=== PATIENT | female | born 1985 | race Caucasian/White ===

== ENCOUNTER 2019-07-16 20:56 | Emergency (ER) | payer SELFPAY ==
[2019-07-16 21:00] VITALS: BP 159/98; PULSE 91; RESP 20; TEMP 36.3; O2SAT 95; BMI 41.5
--- NOTE | 2019-07-16 21:09 | CTR_ITS ---
PROCEDURE INFORMATION: Exam: CT Abdomen And Pelvis Without Contrast Exam date and time: 07/16/2019 9:20 PM Age: 34 years old Clinical indication: Abdominal pain; Right; Prior surgery; Surgery date: 6+ months; Surgery type: Hyst; Patient HX: C/O R flank pain w HX of stones TECHNIQUE: Imaging protocol: Computed tomography of the abdomen and pelvis without contrast. Radiation optimization: All CT scans at this facility use at least one of these dose optimization techniques: automated exposure control; mA and/or kV adjustment per patient size (includes targeted exams where dose is matched to clinical indication); or iterative reconstruction. COMPARISON: US Pelvis Female [id number] 08/19/2015 9:51 AM RADIATION DOSE METRICS: Total DLP: 1854.06 mGy-cm FINDINGS: Limitations: The absence of intravenous contrast lessens the sensitivity of this study for solid organ abnormalities. Liver: There is no focal abnormality within the liver. Gallbladder and bile ducts: Multiple calcified gallstones are present. Pancreas: The pancreas is normal. Spleen: The spleen is normal. Adrenals: The adrenal glands are normal. Kidneys and ureters: There is no evidence of hydronephrosis. There is no evidence of renal or ureteral calcifications. Mild stranding around the right ureter could represent sign of recently passed stone. Correlation with clinical history is suggested. The kidneys are normal. Stomach and bowel: There is no evidence of colitis/diverticulitis. Appendix: A normal appendix is identified. Intraperitoneal space: There is no evidence of free intraperitoneal fluid. Vasculature: There is a small calcified phlebolith in the right gonadal vein. Lymph nodes: Unremarkable. No enlarged lymph nodes. Bladder: Unremarkable as visualized. Reproductive: There has been a hysterectomy. Bones/joints: Unremarkable. No acute fracture. Soft tissues: Unremarkable. Other findings: . CT/CT kidney stone [id number] IMPRESSION: 1. Cholelithiasis 2. No acute findings Radiation Dose CTDIVOL = (mGy): DLP = 1854.06 (mGy-cm)
--- NOTE | 2019-07-16 21:15 | ED_ITS ---
HPI - Abdominal Pain General: Chief Complaint: Abdominal Pain Stated Complaint: possible uti/abd pain Time Seen by Provider: 07/16/19 21:07 Source: patient Mode of arrival: ambulatory Limitations: no limitations History of Present Illness: HPI narrative: 34-year-old female who states she has had bilateral flank pain along with dysuria. She states she has had pain especially at the end of her urination has had been urinating more as well. Patient denies any fever. Patient denies any chest pain. She states that she has had bilateral flank pain she rates a 5 out of 10. MD elicited complaint: abdominal pain and flank pain Onset (ago): day(s) Associated Symptoms: Reports dysuria; Denies chills, diarrhea, fever(s), nausea and vomiting Review of Systems Const: Denies: fever(s), chills, body aches or change in appetite Eyes: Denies: blurry vision or eye discomfort ENMT: Denies: throat pain or dental pain Card: Denies: chest pain Resp: Denies: dyspnea GI: Denies: abdominal pain, nausea, vomiting or diarrhea : Reports: flank pain and dysuria Musc: Denies: neck pain or back pain Skin/Breast: Denies: rash Neuro: Denies: headache(s) Psych: Denies: depression Glynn/Lymph: Denies: easy bruising All/Imm: Denies: urticaria PFSH ED PFSH: Social History Smoking and tobacco status: never smoked Physical Exam Const: COMMON NORMALS: no acute distress, patient oriented x3 and healthy appearing HENMT: COMMON NORMALS: normocephalic and atraumatic HEAD & SCALP: normocephalic and atraumatic Eye: COMMON NORMALS: Equal, round and reactive pupils present and EOMs intact bilaterally PUPIL: Yes Equal, round and reactive pupils present Neck/C-Spine: COMMON NORMALS: full ROM and supple Chest: COMMONS NORMALS: normal inspection of the chest and normal palpation of entire chest wall Resp: COMMON NORMALS: normal respiratory effort, No retractions, No use of accessory muscles and clear to auscultation bilaterally AUSCULTATION: clear to auscultation bilaterally Cardio: COMMON NORMALS: regular rate, regular rhythm and No murmurs present (Cardio) RATE: regular rate RHYTHM: regular rhythm GI: COMMON NORMALS: Normal to inspection, nondistended, normoactive bowel sounds present, Soft to palpation, non-tender and no masses PALPATION: Yes Soft to palpation Extremity: COMMON NORMALS: normal to inspection and full ROM Neuro: COMMON NORMALS: patient oriented x3, moves all extremities and no focal motor deficits Psych: COMMON NORMALS: mental status grossly normal, Normal thought process present and cooperative THOUGHT PROCESS: Normal thought process present Skin: COMMON NORMALS: no rashes or lesions noted and no wounds GENERAL SKIN EXAM: no rashes or lesions noted Course Vital Signs: Vital signs: Vital Signs Temperature 97.3 F L 07/16/19 21:00 Pulse Rate 91 07/16/19 21:00 Respiratory Rate 16 07/16/19 21:47 Blood Pressure 159/98 07/16/19 21:00 Pulse Oximetry 95 07/16/19 21:00 MDM - Abdominal Pain MDM Narrative: Medical decision making narrative: Emmie presents here with flank pain along with dysuria and was found to have an acute cystitis. Patient has no signs of kidney stone and CT scan of her abdomen was otherwise normal. Patient is afebrile and lab work is normal. Her pain is improved here. We will start her on antibiotics and prescribe her pain meds for home. She is to follow-up with her primary care doctor in 3 to 5 days and return if worsening. Lab Data: Labs: Lab Results 07/16/19 07/16/19 07/16/19 Range/Units 21:13 21:37 21:37 WBC 10.7 H (4.0-10.0) 10^3/ uL RBC 5.31 H (4.1-5.3) 10^6/u L Hgb 14.5 (11.5-15.3) g/dL Hct 45.0 (37.0-47.0) % MCV 84.7 (81-99) fL MCH 27.3 L (28.0-34.0) pg MCHC 32.2 (30.0-36.0) g/dL RDW 12.6 (12.1-15.1) % Plt Count 283 (130-400) 10^3/c mm MPV 8.9 (7.4-10.4) fL Neut % (Auto) 67.5 % Lymph % (Auto) 21.5 % [place] % (Auto) 9.1 % Eos % (Auto) 0.9 % Baso % (Auto) 0.3 % Neut # (Auto) 7.2 (1.8-7.7) 10^3/u L Lymph # (Auto) 2.3 (0.8-4.8) 10^3/u L [place] # (Auto) 1.0 H (0.2-0.9) 10^3/u L Eos # (Auto) 0.1 (0.0-0.8) 10^3/u L Baso # (Auto) 0.0 (0.0-0.1) 10^3/u L Nucleated RBC % (a uto) 0 % Nucleated RBCs # 0.0 /100WBC Sodium 142 (136-145) mmol/L Potassium 4.3 (3.5-5.1) mmol/L Chloride 101 (98-107) mmol/L Carbon Dioxide 29 (22-29) mmol/L Anion Gap 16.3 (5-19) BUN 13 (6-20) mg/dL Creatinine 1.0 H (0.5-0.9) mg/dL GFR Calculation 63.5 L (90-130) mL/min Glucose 120 H (65-115) mg/dL Calculated Osmolal ity 291 (285-295) mOsm/k g Calcium 10.2 (8.5-10.5) mg/dL Total Bilirubin 0.3 (0.15-1.2) mg/dL AST 17 (0-32) U/L ALT 21 (0-33) U/L Alkaline Phosphata se 104 (35-105) IU/L Total Protein 7.5 (6.6-8.7) g/dL Albumin 4.4 (3.5-5.2) g/dL Globulin 3.1 (1.3-4.6) g/dL Lipase 75 H (13-60) U/L Urine Color Straw (Yellow) Urine Appearance Hazy A (CLEAR) Urine pH 8 H (5-7) Ur Specific Gravit y 1.005 (1.005-1.030) Urine Protein Neg (Negative) Urine Glucose (UA) Norm (Normal) Urine Ketones Negative (Negative) Urine Blood 3+ H (Negative) Urine Nitrate Negative (Negative) Urine Bilirubin Neg (NEGATIVE) Prot Sulfosalicyli c Acd Positive (Negative) Urine Urobilinogen Norm (Negative) mg/dL Ur Leukocyte Selina ase 2+ H (Negative) Urine RBC >100 H (0-2) /hpf Urine WBC 10-15 H (0-5) /hpf Ur Squamous Epith Cells 0-4 H (0-5) Urine Bacteria Trace (NONE) Imaging Data ^: CT Abd/Pel: Radiologist's impression: [facility] [address] [place] [address] CT Scan Report Signed Patient: Emmie Hickey Unit #: [id number] : 1985 Age/Sex: 34 / F ADM Date: 07/16/19 Loc: ER Room/Bed: Attending Dr: Ordering Provider/Ordering MD: Carolyn Oviedo MD Date of Service: 07/16/19 Procedure(s): CT kidney stone 12979 Accession Number(s): [id number] Report Number: [id number] PROCEDURE INFORMATION: Exam: CT Abdomen And Pelvis Without Contrast Exam date and time: 07/16/2019 9:20 PM Age: 34 years old Clinical indication: Abdominal pain; Right; Prior surgery; Surgery date: 6+ months; Surgery type: Hyst; Patient HX: C/O R flank pain w HX of stones TECHNIQUE: Imaging protocol: Computed tomography of the abdomen and pelvis without contrast. Radiation optimization: All CT scans at this facility use at least one of these dose optimization techniques: automated exposure control; mA and/or kV adjustment per patient size (includes targeted exams where dose is matched to clinical indication); or iterative reconstruction. COMPARISON: US Pelvis Female [id number] 08/19/2015 9:51 AM RADIATION DOSE METRICS: Total DLP: 1854.06 mGy-cm FINDINGS: Limitations: The absence of intravenous contrast lessens the sensitivity of this study for solid organ abnormalities. Liver: There is no focal abnormality within the liver. Gallbladder and bile ducts: Multiple calcified gallstones are present. Pancreas: The pancreas is normal. Spleen: The spleen is normal. Adrenals: The adrenal glands are normal. Kidneys and ureters: There is no evidence of hydronephrosis. There is no evidence of renal or ureteral calcifications. Mild stranding around the right ureter could represent sign of recently passed stone. Correlation with clinical history is suggested. The kidneys are normal. Stomach and bowel: There is no evidence of colitis/diverticulitis. Appendix: A normal appendix is identified. Intraperitoneal space: There is no evidence of free intraperitoneal fluid. Vasculature: There is a small calcified phlebolith in the right gonadal vein. Lymph nodes: Unremarkable. No enlarged lymph nodes. Bladder: Unremarkable as visualized. Reproductive: There has been a hysterectomy. Bones/joints: Unremarkable. No acute fracture. Soft tissues: Unremarkable. Other findings: . CT/CT kidney stone [id number] IMPRESSION: 1. Cholelithiasis 2. No acute findings Discharge Plan Discharge Patient Disposition: Home, Self-Care Clinical Impression: Acute cystitis Qualifiers: Hematuria presence: with hematuria Qualified Code(s): N30.01 - Acute cystitis with hematuria Condition: Stable Prescriptions: [place] 5-325 mg tablet 1 tab PO Q6H PRN (Reason: pain) Qty: 10 RF: 0 Zofran 4 mg tablet 4 mg PO QID PRN (Reason: nausea and vomiting) Qty: 14 RF: 0 Keflex 500 mg capsule 500 mg PO Q6H 7 Days Qty: 28 RF: 0 Discharge Orders: Discharge Order (Routine); Ordered 07/16/19 Ordered By: Carolyn Oviedo Referrals: Tessa Sheridan MD [Primary Care Provider] - 4-7 days Discharge Diet: Advance as tolerated Discharge Activity: Resume usual activity Coding Level of Care Code ED Payroll Administrator for Chg Fwd Exam Comprehensive
[2019-07-16] MEDS: sodium chloride 0.9% 1,000 ML 999 ML IV (21:46)
[2019-07-16 21:47] VITALS: RESP 16
[2019-07-16] MEDS: ondansetron 2 mg/ML SDV 2 mL 4 MG IVP (21:47)
[2019-07-16] MEDS: morphine 4 mg/mL SDV 1 mL IVP (21:47)
[2019-07-16 21:49] LABS: Basophils % 0.3 %; Eosinophils # 0.1 10^3/uL (0.0-0.8); Eosinophils % 0.9 %; Hemoglobin 14.5 g/dL (11.5-15.3); Lymphocytes # 2.3 10^3/uL (0.8-4.8); Lymphocytes % 21.5 %; Mean Corpuscular HGB Conc 32.2 g/dL (30.0-36.0); Mean Corpuscular Hemoglobin 27.3 pg (28.0-34.0); Mean Corpuscular Volume 84.7 fL (81-99); Mean Platelet Volume 8.9 fL (7.4-10.4); Monocytes % 9.1 %; Neutrophils # 7.2 10^3/uL (1.8-7.7); Neutrophils % 67.5 %; Nucleated Red Blood Cells % 0 %; Platelet Count 283 10^3/cmm (130-400); Red Blood Count 5.31 10^6/uL (4.1-5.3); Red Cell Distribution Width 12.6 % (12.1-15.1); White Blood Count 10.7 10^3/uL (4.0-10.0)
[2019-07-16 21:53] LABS: Add Urine Microscopic? YES; Bilirubin Urine Neg (NEGATIVE); Blood Urine 3+ (Negative); Glucose Urine UA Norm (Normal); Ketones Urine Negative (Negative); Leukocyte Esterase Urine 2+ (Negative); Nitrate Urine Negative (Negative); Protein Urine Neg (Negative); Specific Gravity, Urine 1.005 (1.005-1.030); Sulfosalicylic Acid Urine Positive (Negative); Urine Appearance Hazy (CLEAR); Urine Color Straw (Yellow); Urobilinogen Urine Norm (Negative); pH Urine 8 (5-7)
[2019-07-16 21:58] LABS: Bacteria Urine TRACE; RBC Urine >100 /hpf (0-2); Squamous Epithelial Cell Urine 0-4 (0-5)
[2019-07-16 21:59] LABS: Add Urine Culture? Yes
[2019-07-16 22:03] LABS: Alanine Aminotransferase 21 U/L (0-33); Albumin Level 4.4 g/dL (3.5-5.2); Alkaline Phosphatase 104 IU/L (35-105); Anion Gap 16.3 (5-19); Aspartate Amino Transferase 17 U/L (0-32); Blood Urea Nitrogen 13 mg/dL (6-20); Calcium 10.2 mg/dL (8.5-10.5); Carbon Dioxide 29 mmol/L (22-29); Chloride 101 mmol/L (98-107); Globulin 3.1 g/dL (1.3-4.6); Glomerular Filtration Rate 63.5 mL/min (90-130); Glucose 120 mg/dL (65-115); Lipase 75 U/L (13-60); Osmolality Calculated 291 mOsm/kg (285-295); Potassium 4.3 mmol/L (3.5-5.1); Sodium 142 mmol/L (136-145); Total Bilirubin 0.3 mg/dL (0.15-1.2); Total Protein 7.5 g/dL (6.6-8.7)
[2019-07-16] MEDS: cefTRIAXone 1,000 MG in sodium chloride 0.9% (plus) 50 ML 100 MG IV (22:13)
[2019-07-16 22:58] VITALS: BP 116/72; PULSE 84; RESP 16; O2SAT 99
== END 2019-07-16 22:57 | disposition home or self-care (01) ==
PROVIDERS: Emergency Provider Emergency Medicine; PCP Family Medicine
DX: N30.01 Acute cystitis with hematuria (principal)
CPT/HCPCS: 12345; 74176; 80053; 81001; 83690; 85025; 87077; 87086; 87186; 96365; 96375; 99282; 99283; J0696; J2270; J2405; J7030

== ENCOUNTER → 2023-04-16 09:05 | Outpatient (BNVA) | payer OTHER, SELFPAY | PROVIDERS: Visit Provider Podiatrist Foot & Ankle Surgery | DX: M20.11 Hallux valgus (acquired), right foot; M77.41 Metatarsalgia, right foot; L60.3 Nail dystrophy | CPT/HCPCS: 73630 ==